=== PATIENT | female | born 1990 | race Caucasian/White ===

== ENCOUNTER 2022-02-08 16:22 | Outpatient (CLI) | payer OTHER, SELFPAY | END 2022-02-08 16:23 | disposition home or self-care (01) | LOC: ANHLAB 16:25 | PROVIDERS: PCP Family Medicine; Visit Provider Obstetrics & Gynecology | DX: Z86.711 Personal history of pulmonary embolism (principal) | CPT/HCPCS: 36415; 85520 ==

== ENCOUNTER 2022-02-13 14:48 | Outpatient (CLI) | payer OTHER, SELFPAY ==
[2022-02-15 11:00] LABS: Heparin, Anti-XA 0.22 IU/mL
== END 2022-02-13 14:49 | disposition home or self-care (01) ==
PROVIDERS: PCP Family Medicine; Visit Provider Obstetrics & Gynecology
DX: Z86.711 Personal history of pulmonary embolism (principal)
CPT/HCPCS: 36415; 85520

== ENCOUNTER 2022-02-15 03:02 | Inpatient (IN) | payer OTHER, SELFPAY ==
[2022-02-15] VITALS (57 sets, daily range): BP systolic 74–161; BP diastolic 23–119; PULSE 80–135; TEMP 36.2–36.4; O2SAT 98–100; BMI 34.1
--- OUTSIDE RECORDS SUMMARY | 2022-02-15 00:59 | XMS_ITS | Encounter Summary ---
:1990 Author Care Team Providers Name Role Phone Maite Steward MD Primary Care Provider [phone] Reason for Visit None recorded. Assessment and Plan 1. Gestational diabetes mellitus, class A>1< ? US, obstetric, biophysical profile + non-stress test Discussion Note: None recorded.Patient educational handouts: No information available. Plan of Care Reminders Provider Appointments None recorded. ? ? Lab None recorded. ? ? Referral None recorded. ? ? Procedures None recorded. ? ? Surgeries None recorded. ? ? Imaging US, Obstetric, Biophysical Profile + 2 [place] Non-stress Test Medications Name Start Date ? ? enoxaparin 100 mg/mL subcutaneous syringe ? INJECT 1 ML BY SUBCUTANEOUS ROUTE EVERY 12 HOURS. escitalopram 10 mg tablet ? Take 1 tablet every day by oral route. ondansetron 4 mg disintegrating tablet ? Take one tablet by oral route every 8 hours as needed for nausea and vomiting OneTouch Delica Plus Lancet 33 gauge ? TEST BLOOD SUGAR 4 TIMES A DAY OneTouch Verio Flex Meter ? CHECK BLOOD SUGAR 4 TIMES A DAY FASTING AND [address] MEALS OneTouch Verio test strips ? USE TO TEST BLOOD SUGAR 4 TIMES A DAY ? Vitamin D2 ? Vitamin D3 ? Medications Administered None recorded. Vitals None recorded. Results Lab Results None recorded. Allergies Code Code System Name Reaction Severity Onset NKDA ? ? ? Problems Name Status Onset Date Source ? Factor II Deficiency Ac
--- OUTSIDE RECORDS SUMMARY | 2022-02-15 00:59 | XMS_ITS | Encounter Summary ---
:1990 Author Care Team Providers Name Role Phone Maite Steward MD Primary Care Provider [phone] Reason for Visit OB visit OB [id number] EDC 02/22/2022 LMP 05/18/2021 Assessment and Plan Assessment Note Patient is _38__weeks . Discuss ed plan. 1. Routine care Discussion Note: None recorded.Patient educational handouts: No information available. Plan of Care Reminders Provider Appointments None recorded. ? ? Lab None recorded. ? ? Referral None recorded. ? ? Procedures None recorded. ? ? Surgeries None recorded. ? ? Imaging None recorded. ? ? Medications Name Start Date ? ? enoxaparin [...] D3 ? Medications Administered None recorded. Vitals Height Weight BMI Blood Pressure 5 ft 6 in 205 lbs 33.1 kg/m2 118/78 mm[Hg] Results Lab Results None recorded. Allergies Code Code System Name Reaction Severity Onset NKDA
--- OUTSIDE RECORDS SUMMARY | 2022-02-15 00:59 | XMS_ITS | Encounter Summary ---
:1990 Author Care Team Providers Name Role Phone Maite Steward MD Primary Care Provider [phone] Reason for Visit None recorded. Assessment and Plan 1. History of pulmonary embolus ? non-stress test Discussion Note: None recorded.Patient educational handouts: No information available. Plan of Care Reminders Provider Appointments None recorded. ? ? Lab None recorded. ? ? Referral None recorded. ? ? Procedures None recorded. ? ? Surgeries None recorded. ? ? Imaging Non-stress Test 02/08/2022 [place] Medications Name Start Date ? ? enoxaparin [...] Onset Date Source ? 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 Pulmonary Embolism Active 07/20/2020 ? Active
--- OUTSIDE RECORDS SUMMARY | 2022-02-15 00:59 | XMS_ITS | Encounter Summary ---
:1990 Author Care Team Providers Name Role Phone Maite Steward MD Primary Care Provider [phone] Reason for Visit OB visit OB [id number] EDC 02/22/2022 LMP 05/18/2021 Assessment and Plan Assessment Note Patient is _35__weeks . Discuss ed plan. 1. Routine care [...] BMI Blood Pressure 5 ft 6 in 204 lbs 32.9 kg/m2 140/80 mm[Hg] Results Lab Results None recorded. Allergies Code Code System Name Reaction Severity Onset NKDA ?
--- OUTSIDE RECORDS SUMMARY | 2022-02-15 00:59 | XMS_ITS | Encounter Summary ---
:1990 Author Care Team Providers Name Role Phone Maite Steward MD Primary Care Provider [phone] Reason for Visit OB visit OB [id number] EDC 02/22/2022 LMP 05/18/2021 Assessment and Plan Assessment Note Patient is _36__weeks . Discuss ed plan. 1. Routine care [...] BMI Blood Pressure 5 ft 6 in 206 lbs 33.2 kg/m2 130/78 mm[Hg] Results Lab Results None recorded. Allergies Code Code System Name Reaction Severity Onset NKDA ?
--- OUTSIDE RECORDS SUMMARY | 2022-02-15 00:59 | XMS_ITS | Encounter Summary ---
:1990 Author Care Team Providers Name Role Phone Maite Steward MD Primary Care Provider [phone] Reason for Visit None recorded. Assessment and Plan 1. Gestational diabetes mellitus, class A>1< ? US, obstetric, follow-up ? US, obstetric, biophysical profile + non-stress test Discussion Note: None recorded.Patient educational handouts: No information available. Plan of Care Reminders Provider Appointments None recorded. ? ? Lab None recorded. ? ? Referral None recorded. ? ? Procedures None recorded. ? ? Surgeries None recorded. ? ? Imaging US, Obstetric, Follow-up 01/18/2022 [place] ? US, Obstetric, Biophysical Profile + 2 [place] Non-stress Test Medications Name Start Date ? [...]
--- OUTSIDE RECORDS SUMMARY | 2022-02-15 00:59 | XMS_ITS | Encounter Summary ---
:1990 Author Care Team Providers Name Role Phone Maite Steward MD Primary Care Provider [phone] Reason for Visit OB visit OB [id number] EDC 02/22/2022 LMP 05/18/2021 Assessment and Plan Assessment Note Patient is _37__weeks . Discuss ed plan. 1. Routine care [...] BMI Blood Pressure 5 ft 6 in 208 lbs 33.6 kg/m2 117/73 mm[Hg] Results Lab Results None recorded. Allergies Code Code System Name Reaction Severity Onset NKDA ?
--- OUTSIDE RECORDS SUMMARY | 2022-02-15 00:59 | XMS_ITS ---
:1990 Author Care Team Providers Name Role Phone ROE METZGER MD Primary Care Provider [phone] Allergies Code Code System Name Reaction Severity Status Onset NKDA ? Medications Name Status Start Date Stop Date ? ? acetaminophen 300 mg-codeine 30 mg tablet Completed ? 01/08/2021 enoxaparin 100 mg/mL subcutaneous syringe Active ? Not available Yi 0.35 mg tablet Completed 05/28/2016 12/30/2016 take 1 tablet by oral route every day escitalopram 10 mg tablet Active ? Not av ailable Lexapro Completed ? 01/04/2021 Lovenox 150 mg/mL subcutaneous syringe Completed 8 09/30/2018 inject 1 milliliter by subcutaneous route every 12 hours Lovenox 300 mg/3 mL subcutaneous solution Completed ? 07/20/2020 inject by subcutaneous route every 12 hours methylphenidate ER 36 mg tablet,extended Completed ? 01/08/2021 release 24 hr Mirena 20 mcg/24 hours (8 yrs) 52 mg intrauterine device Complet ed ? 01/04/2021 Take by intrauterine route. NuvaRing 0.12 mg-0.015 mg/24 hr vaginal Completed 04/21/20 17 05/22/2017 INSERT 1 VAGINAL RING BY VAGINAL ROUTE LEAVE IN PLACE FOR 3 WEEKS, REMOVE FOR 1 WEEK ondansetron 4 mg disintegrating tablet Active ? Not available Take one tablet by oral route every 8 hours as needed for n ausea and vomiting OneTouch Delica Plus Lancet 33 gauge Active ? Not available TEST BLOOD SUGAR 4 TIMES A DAY OneTouch Verio Flex Meter Active ? Not av ailable CHECK BLOOD SUGAR 4 TIMES A DAY FASTING AND 1 HOUR AFTER MEALS OneTouch Verio test strips Active ? Not a vailable USE TO TEST BLOOD SUGAR 4 TIMES
--- OUTSIDE RECORDS SUMMARY | 2022-02-15 00:59 | XMS_ITS | Encounter Summary ---
:1990 Author Care Team Providers Name Role Phone Maite Steward MD Primary Care Provider [phone] Reason for Visit None recorded. Assessment and Plan 1. History of pulmonary embolus ? non-stress test Discussion Note: None recorded.Patient educational handouts: No information available. Plan of Care Reminders Provider Appointments None recorded. ? ? Lab None recorded. ? ? Referral None recorded. ? ? Procedures None recorded. ? ? Surgeries None recorded. ? ? Imaging Non-stress Test 01/25/2022 [place] Medications Name Start Date ? ? enoxaparin [...]
--- OUTSIDE RECORDS SUMMARY | 2022-02-15 00:59 | XMS_ITS | Encounter Summary ---
:1990 Author Care Team Providers Name Role Phone Maite Steward MD Primary Care Provider [phone] Reason for Visit OB visit OB [id number] EDC 02/22/2022 LMP 05/18/2021 Assessment and Plan [...] ft 6 in 205 lbs 33.1 kg/m2 116/79 mm[Hg] Results Lab Results None recorded. Allergies Code Code System Name Reaction Severity Onset NKDA ?
--- OUTSIDE RECORDS SUMMARY | 2022-02-15 00:59 | XMS_ITS | Encounter Summary ---
:1990 Author Care Team Providers Name Role Phone Maite Steward MD Primary Care Provider [phone] Reason for Visit None recorded. Assessment and [...] Imaging US, Obstetric, Biophysical Profile + 2 [place] Non-stress Test Medications Name Start Date ? [...] Onset Date Source ? Factor II Deficiency Act
--- OUTSIDE RECORDS SUMMARY | 2022-02-15 00:59 | XMS_ITS | Encounter Summary ---
:1990 Author Care Team Providers Name Role Phone Maite Steward MD Primary Care Provider [phone] Reason for Visit None recorded. Assessment and [...] Imaging US, Obstetric, Biophysical Profile + 2 [place] Non-stress Test Medications Name Start Date ? [...]
--- OUTSIDE RECORDS SUMMARY | 2022-02-15 00:59 | XMS_ITS | Encounter Summary ---
:1990 Author Care Team Providers Name Role Phone Maite Steward MD Primary Care Provider [phone] Reason for Visit None recorded. Assessment and Plan 1. History of pulmonary embolus ? non-stress test Discussion Note: None recorded.Patient educational handouts: No information available. Plan of Care Reminders Provider Appointments None recorded. ? ? Lab None recorded. ? ? Referral None recorded. ? ? Procedures None recorded. ? ? Surgeries None recorded. ? ? Imaging Non-stress Test 02/13/2022 [place] Medications Name Start Date ? ? enoxaparin [...] 07/20/2020 ? Pulmonary Embolism Active 07/20/2020 ? Activ
--- OUTSIDE RECORDS SUMMARY | 2022-02-15 00:59 | XMS_ITS | Encounter Summary ---
:1990 Author Care Team Providers Name Role Phone Maite Steward MD Primary Care Provider [phone] Reason for Visit None recorded. Assessment and Plan 1. History of pulmonary embolus ? non-stress test Discussion Note: None recorded.Patient educational handouts: No information available. Plan of Care Reminders Provider Appointments None recorded. ? ? Lab None recorded. ? ? Referral None recorded. ? ? Procedures None recorded. ? ? Surgeries None recorded. ? ? Imaging Non-stress Test 02/01/2022 [place] Medications Name Start Date ? ? enoxaparin [...]
--- OUTSIDE RECORDS SUMMARY | 2022-02-15 01:00 | XMS_ITS | Encounter Summary ---
:1990 Author Care Team Providers Name Role Phone Maite Steward MD Primary Care Provider [phone] Reason for Visit OB visit OB [id number] EDC 02/22/2022 LMP 05/18/2021 Assessment and Plan Assessment Note Patient is 29___weeks . Discuss ed plan. 1. Routine care [...] BMI Blood Pressure 5 ft 6 in 207 lbs 33.4 kg/m2 104/70 mm[Hg] Results Lab Results None recorded. Allergies Code Code System Name Reaction Severity Onset NKDA ?
--- OUTSIDE RECORDS SUMMARY | 2022-02-15 01:00 | XMS_ITS | Encounter Summary ---
:1990 Author Care Team Providers Name Role Phone Maite Steward MD Primary Care Provider [phone] Reason for Visit None recorded. Assessment and Plan 1. History of pulmonary embolus ? non-stress test Discussion Note: None recorded.Patient educational handouts: No information available. Plan of Care Reminders Provider Appointments None recorded. ? ? Lab None recorded. ? ? Referral None recorded. ? ? Procedures None recorded. ? ? Surgeries None recorded. ? ? Imaging Non-stress Test 01/18/2022 [place] Medications Name Start Date ? ? enoxaparin [...]
--- OUTSIDE RECORDS SUMMARY | 2022-02-15 01:00 | XMS_ITS | Encounter Summary ---
:1990 Author Care Team Providers Name Role Phone Maite Steward MD Primary Care Provider [phone] Reason for Visit OB visit OB [id number] EDC 02/22/2022 LMP 05/18/2021 Assessment and Plan Assessment Note Patient is __33_weeks . Discuss ed plan. 1. Routine care [...] BMI Blood Pressure 5 ft 6 in 203 lbs 32.8 kg/m2 120/70 mm[Hg] Results Lab Results None recorded. Allergies Code Code System Name Reaction Severity Onset NKDA ?
--- OUTSIDE RECORDS SUMMARY | 2022-02-15 01:00 | XMS_ITS | Encounter Summary ---
:1990 Author Care Team Providers Name Role Phone Maite Steward MD Primary Care Provider [phone] Reason for Visit None recorded. Assessment and [...] Imaging US, Obstetric, Biophysical Profile + 2 [place] Non-stress Test Medications Name Start Date ? [...]
--- OUTSIDE RECORDS SUMMARY | 2022-02-15 01:00 | XMS_ITS | Encounter Summary ---
:1990 Author Care Team Providers Name Role Phone Maite Steward MD Primary Care Provider [phone] Reason for Visit OB visit OB [id number] EDC 02/22/22 LMP 05/18/2021 Assessment and Plan Assessment Note [...] ft 6 in 205 lbs 33.1 kg/m2 114/75 mm[Hg] Results Lab Results None recorded. Allergies Code Code System Name Reaction Severity Onset NKDA ?
--- OUTSIDE RECORDS SUMMARY | 2022-02-15 01:00 | XMS_ITS | Encounter Summary ---
:1990 Author Care Team Providers Name Role Phone Maite Steward MD Primary Care Provider [phone] Reason for Visit None recorded. Assessment and [...] Imaging US, Obstetric, Biophysical Profile + 2 [place] Non-stress Test Medications Name Start Date ? [...] Onset Date Source ? Factor II Deficiency Acti
--- OUTSIDE RECORDS SUMMARY | 2022-02-15 01:00 | XMS_ITS | Encounter Summary ---
:1990 Author Care Team Providers Name Role Phone Maite Steward MD Primary Care Provider [phone] Reason for Visit None recorded. Assessment and Plan 1. History of pulmonary embolus ? non-stress test Discussion Note: None recorded.Patient educational handouts: No information available. Plan of Care Reminders Provider Appointments None recorded. ? ? Lab None recorded. ? ? Referral None recorded. ? ? Procedures None recorded. ? ? Surgeries None recorded. ? ? Imaging Non-stress Test 12/28/2021 [place] Medications Name Start Date ? ? enoxaparin [...]
--- OUTSIDE RECORDS SUMMARY | 2022-02-15 01:00 | XMS_ITS | Encounter Summary ---
:1990 Author Care Team Providers Name Role Phone Maite Steward MD Primary Care Provider [phone] Reason for Visit None recorded. Assessment and Plan 1. History of pulmonary embolus ? non-stress test Discussion Note: None recorded.Patient educational handouts: No information available. Plan of Care Reminders Provider Appointments None recorded. ? ? Lab None recorded. ? ? Referral None recorded. ? ? Procedures None recorded. ? ? Surgeries None recorded. ? ? Imaging Non-stress Test 01/04/2022 [place] Medications Name Start Date ? ? enoxaparin [...]
--- OUTSIDE RECORDS SUMMARY | 2022-02-15 01:00 | XMS_ITS | Encounter Summary ---
:1990 Author Care Team Providers Name Role Phone Maite Steward MD Primary Care Provider [phone] Reason for Visit None recorded. Assessment and [...] Imaging US, Obstetric, Biophysical Profile + 2 [place] Non-stress Test Medications Name Start Date ? [...]
--- OUTSIDE RECORDS SUMMARY | 2022-02-15 01:00 | XMS_ITS | Encounter Summary ---
:1990 Author Care Team Providers Name Role Phone Maite Steward MD Primary Care Provider [phone] Reason for Visit OB visit OB [id number] EDC 02/22/2022 LMP 05/18/2021 Assessment and Plan Assessment Note Patient is ___weeks . Discussed plan. 1. Routine care Discussion Note: None [...] ft 6 in 203 lbs 32.8 kg/m2 109/67 mm[Hg] Results Lab Results None recorded. Allergies Code Code System Name Reaction Severity Onset NKDA ?
--- OUTSIDE RECORDS SUMMARY | 2022-02-15 01:00 | XMS_ITS | Encounter Summary ---
:1990 Author Care Team Providers Name Role Phone Maite Steward MD Primary Care Provider [phone] Reason for Visit None recorded. Assessment and Plan 1. History of pulmonary embolus ? non-stress test Discussion Note: None recorded.Patient educational handouts: No information available. Plan of Care Reminders Provider Appointments None recorded. ? ? Lab None recorded. ? ? Referral None recorded. ? ? Procedures None recorded. ? ? Surgeries None recorded. ? ? Imaging Non-stress Test 01/11/2022 [place] Medications Name Start Date ? ? enoxaparin [...]
--- OUTSIDE RECORDS SUMMARY | 2022-02-15 03:41 | XMS_ITS | Encounter Summary ---
:1990 Author Care Team Providers Name Role Phone Maite Steward MD Primary Care Provider [phone] Reason for Visit OB visit OB [id number] EDC 02/22/2022 LMP 05/18/2021 Assessment and Plan [...]
--- OUTSIDE RECORDS SUMMARY | 2022-02-15 03:41 | XMS_ITS | Encounter Summary ---
:1990 Author Care Team Providers Name Role Phone Maite Steward MD Primary Care Provider [phone] Reason for Visit None recorded. Assessment and [...] Imaging US, Obstetric, Biophysical Profile + 2 [place] Non-stress Test Medications Name Start Date ? [...]
--- OUTSIDE RECORDS SUMMARY | 2022-02-15 03:41 | XMS_ITS ---
:1990 Author Care Team Providers Name Role Phone ROE METZGER MD Primary Care Provider [phone] Allergies Code Code System Name Reaction Severity [...]
--- OUTSIDE RECORDS SUMMARY | 2022-02-15 03:41 | XMS_ITS | Encounter Summary ---
:1990 Author Care Team Providers Name Role Phone Maite Steward MD Primary Care Provider [phone] Reason for Visit OB visit OB [id number] EDC 02/22/2022 LMP 05/18/2021 Assessment and Plan [...]
--- OUTSIDE RECORDS SUMMARY | 2022-02-15 03:41 | XMS_ITS | Encounter Summary ---
:1990 Author Care Team Providers Name Role Phone Maite Steward MD Primary Care Provider [phone] Reason for Visit None recorded. Assessment and Plan 1. History of pulmonary embolus ? non-stress test Discussion Note: None recorded.Patient educational handouts: No information available. Plan of Care Reminders Provider Appointments None recorded. ? ? Lab None recorded. ? ? Referral None recorded. ? ? Procedures None recorded. ? ? Surgeries None recorded. ? ? Imaging Non-stress Test 02/13/2022 [place] Medications Name Start Date ? ? enoxaparin [...]
--- OUTSIDE RECORDS SUMMARY | 2022-02-15 03:41 | XMS_ITS | Encounter Summary ---
:1990 Author Care Team Providers Name Role Phone Maite Steward MD Primary Care Provider [phone] Reason for Visit OB visit OB [id number] EDC 02/22/2022 LMP 05/18/2021 Assessment and Plan [...]
--- OUTSIDE RECORDS SUMMARY | 2022-02-15 03:41 | XMS_ITS | Encounter Summary ---
:1990 Author Care Team Providers Name Role Phone Maite Steward MD Primary Care Provider [phone] Reason for Visit None recorded. Assessment and [...] Imaging US, Obstetric, Biophysical Profile + 2 [place] Non-stress Test Medications Name Start Date ? [...]
--- OUTSIDE RECORDS SUMMARY | 2022-02-15 03:41 | XMS_ITS | Encounter Summary ---
:1990 Author Care Team Providers Name Role Phone Maite Steward MD Primary Care Provider [phone] Reason for Visit None recorded. Assessment and [...] Imaging US, Obstetric, Biophysical Profile + 2 [place] Non-stress Test Medications Name Start Date ? [...]
--- OUTSIDE RECORDS SUMMARY | 2022-02-15 03:41 | XMS_ITS | Encounter Summary ---
:1990 Author Care Team Providers Name Role Phone Maite Steward MD Primary Care Provider [phone] Reason for Visit None recorded. Assessment and Plan 1. History of pulmonary embolus ? non-stress test Discussion Note: None recorded.Patient educational handouts: No information available. Plan of Care Reminders Provider Appointments None recorded. ? ? Lab None recorded. ? ? Referral None recorded. ? ? Procedures None recorded. ? ? Surgeries None recorded. ? ? Imaging Non-stress Test 02/08/2022 [place] Medications Name Start Date ? ? enoxaparin [...]
--- OUTSIDE RECORDS SUMMARY | 2022-02-15 03:41 | XMS_ITS | Encounter Summary ---
:1990 Author Care Team Providers Name Role Phone Maite Steward MD Primary Care Provider [phone] Reason for Visit None recorded. Assessment and Plan 1. History of pulmonary embolus ? non-stress test Discussion Note: None recorded.Patient educational handouts: No information available. Plan of Care Reminders Provider Appointments None recorded. ? ? Lab None recorded. ? ? Referral None recorded. ? ? Procedures None recorded. ? ? Surgeries None recorded. ? ? Imaging Non-stress Test 02/01/2022 [place] Medications Name Start Date ? ? enoxaparin [...]
--- OUTSIDE RECORDS SUMMARY | 2022-02-15 03:41 | XMS_ITS | Encounter Summary ---
:1990 Author Care Team Providers Name Role Phone Maite Steward MD Primary Care Provider [phone] Reason for Visit OB visit OB [id number] EDC 02/22/2022 LMP 05/18/2021 Assessment and Plan [...]
--- OUTSIDE RECORDS SUMMARY | 2022-02-15 03:42 | XMS_ITS | Encounter Summary ---
:1990 Author Care Team Providers Name Role Phone Maite Steward MD Primary Care Provider [phone] Reason for Visit OB visit OB [id number] EDC 02/22/2022 LMP 05/18/2021 Assessment and Plan [...]
--- OUTSIDE RECORDS SUMMARY | 2022-02-15 03:42 | XMS_ITS | Encounter Summary ---
:1990 Author Care Team Providers Name Role Phone Maite Steward MD Primary Care Provider [phone] Reason for Visit OB visit OB [id number] EDC 02/22/2022 LMP 05/18/2021 Assessment and Plan [...]
--- OUTSIDE RECORDS SUMMARY | 2022-02-15 03:42 | XMS_ITS | Encounter Summary ---
:1990 Author Care Team Providers Name Role Phone Maite Steward MD Primary Care Provider [phone] Reason for Visit None recorded. Assessment and [...] Imaging US, Obstetric, Biophysical Profile + 2 [place] Non-stress Test Medications Name Start Date ? [...]
--- OUTSIDE RECORDS SUMMARY | 2022-02-15 03:42 | XMS_ITS | Encounter Summary ---
:1990 Author Care Team Providers Name Role Phone Maite Steward MD Primary Care Provider [phone] Reason for Visit None recorded. Assessment and [...] Imaging US, Obstetric, Biophysical Profile + 2 [place] Non-stress Test Medications Name Start Date ? [...]
--- OUTSIDE RECORDS SUMMARY | 2022-02-15 03:42 | XMS_ITS | Encounter Summary ---
:1990 Author Care Team Providers Name Role Phone Maite Steward MD Primary Care Provider [phone] Reason for Visit None recorded. Assessment and [...] ? US, Obstetric, Biophysical Profile + 2 [place] Non-stress Test Medications Name Start Date ? [...]
--- OUTSIDE RECORDS SUMMARY | 2022-02-15 03:42 | XMS_ITS | Encounter Summary ---
:1990 Author Care Team Providers Name Role Phone Maite Steward MD Primary Care Provider [phone] Reason for Visit OB visit OB [id number] EDC 02/22/2022 LMP 05/18/2021 Assessment and Plan [...]
--- OUTSIDE RECORDS SUMMARY | 2022-02-15 03:42 | XMS_ITS | Encounter Summary ---
:1990 Author Care Team Providers Name Role Phone Maite Steward MD Primary Care Provider [phone] Reason for Visit None recorded. Assessment and [...] Imaging US, Obstetric, Biophysical Profile + 2 [place] Non-stress Test Medications Name Start Date ? [...]
--- OUTSIDE RECORDS SUMMARY | 2022-02-15 03:42 | XMS_ITS | Encounter Summary ---
:1990 Author Care Team Providers Name Role Phone Maite Steward MD Primary Care Provider [phone] Reason for Visit None recorded. Assessment and Plan 1. History of pulmonary embolus ? non-stress test Discussion Note: None recorded.Patient educational handouts: No information available. Plan of Care Reminders Provider Appointments None recorded. ? ? Lab None recorded. ? ? Referral None recorded. ? ? Procedures None recorded. ? ? Surgeries None recorded. ? ? Imaging Non-stress Test 01/11/2022 [place] Medications Name Start Date ? ? enoxaparin [...]
--- OUTSIDE RECORDS SUMMARY | 2022-02-15 03:42 | XMS_ITS | Encounter Summary ---
:1990 Author Care Team Providers Name Role Phone Maite Steward MD Primary Care Provider [phone] Reason for Visit None recorded. Assessment and Plan 1. History of pulmonary embolus ? non-stress test Discussion Note: None recorded.Patient educational handouts: No information available. Plan of Care Reminders Provider Appointments None recorded. ? ? Lab None recorded. ? ? Referral None recorded. ? ? Procedures None recorded. ? ? Surgeries None recorded. ? ? Imaging Non-stress Test 01/18/2022 [place] Medications Name Start Date ? ? enoxaparin [...]
--- OUTSIDE RECORDS SUMMARY | 2022-02-15 03:42 | XMS_ITS | Encounter Summary ---
:1990 Author Care Team Providers Name Role Phone Maite Steward MD Primary Care Provider [phone] Reason for Visit None recorded. Assessment and Plan 1. History of pulmonary embolus ? non-stress test Discussion Note: None recorded.Patient educational handouts: No information available. Plan of Care Reminders Provider Appointments None recorded. ? ? Lab None recorded. ? ? Referral None recorded. ? ? Procedures None recorded. ? ? Surgeries None recorded. ? ? Imaging Non-stress Test 12/28/2021 [place] Medications Name Start Date ? ? enoxaparin [...]
--- OUTSIDE RECORDS SUMMARY | 2022-02-15 03:42 | XMS_ITS | Encounter Summary ---
:1990 Author Care Team Providers Name Role Phone Maite Steward MD Primary Care Provider [phone] Reason for Visit OB visit OB [id number] EDC 02/22/22 LMP 05/18/2021 Assessment and Plan [...]
--- OUTSIDE RECORDS SUMMARY | 2022-02-15 03:42 | XMS_ITS | Encounter Summary ---
:1990 Author Care Team Providers Name Role Phone Maite Steward MD Primary Care Provider [phone] Reason for Visit None recorded. Assessment and Plan 1. History of pulmonary embolus ? non-stress test Discussion Note: None recorded.Patient educational handouts: No information available. Plan of Care Reminders Provider Appointments None recorded. ? ? Lab None recorded. ? ? Referral None recorded. ? ? Procedures None recorded. ? ? Surgeries None recorded. ? ? Imaging Non-stress Test 01/25/2022 [place] Medications Name Start Date ? ? enoxaparin [...]
--- OUTSIDE RECORDS SUMMARY | 2022-02-15 03:42 | XMS_ITS | Encounter Summary ---
:1990 Author Care Team Providers Name Role Phone Maite Steward MD Primary Care Provider [phone] Reason for Visit OB visit OB [id number] EDC 02/22/2022 LMP 05/18/2021 Assessment and Plan [...]
--- OUTSIDE RECORDS SUMMARY | 2022-02-15 03:42 | XMS_ITS | Encounter Summary ---
:1990 Author Care Team Providers Name Role Phone Maite Steward MD Primary Care Provider [phone] Reason for Visit None recorded. Assessment and Plan 1. History of pulmonary embolus ? non-stress test Discussion Note: None recorded.Patient educational handouts: No information available. Plan of Care Reminders Provider Appointments None recorded. ? ? Lab None recorded. ? ? Referral None recorded. ? ? Procedures None recorded. ? ? Surgeries None recorded. ? ? Imaging Non-stress Test 01/04/2022 [place] Medications Name Start Date ? ? enoxaparin [...]
[2022-02-15 04:21] LABS: Basophils Percent Auto 0.4 % (0.2-1.2); Eosinophils Absolute Auto 0.3 K/mm3 (0-0.3); Eosinophils Percent Auto 2.3 % (0-4.4); Hematocrit 37.2 % (37.0-47.0); Hemoglobin 12.1 g/dL (12.0-15.0); Immature Granulocyte Absolute 0.08 K/mm3 (0.00-0.031); Immature Granulocyte Percent A 0.7 % (0-0.5); Lymphocytes Absolute Auto 2.51 K/mm3 (0.9-3.2); Lymphocytes Percent Auto 22.7 % (18.3-44.2); Mean Corpuscular HGB Conc 32.5 g/dl (32-36); Mean Corpuscular Hemoglobin 28.5 pg (26-34); Mean Corpuscular Volume 87.7 fl (80-100); Mean Platelet Volume 11.6 fl (7.4-10.4); Monocytes Absolute Auto 0.8 K/mm3 (0.1-0.6); Monocytes Percent Auto 6.8 % (2.6-8.5); Neutrophils Absolute Auto 7.5 K/mm3 (1.3-6.7); Neutrophils Percent Auto 67.1 % (45.5-73.1); Platelet Count Result 254 k/mm3 (150-375); Red Blood Count 4.24 M/mm3 (4.2-5.4); Red Cell Distribution Width 14.4 % (11.5-14.5); White Blood Count 11.1 K/mm3 (4.5-10.0)
[2022-02-15] MEDS: ONDANSETRON INJ 4 MG/2 ML VIAL IV PUSH (04:30)
--- NOTE | 2022-02-15 06:27 | WPDOBADMIT ---
Obstetrics - Admit Note Admission Note: record reviewed. No pertinent additions to the history and/or any subsequent changes in the physical findings that are not consistent with the expected course of the were found. Pt admitted for IOL, hx section with one successful ,, pt aware of risks, will proceed with amniotomy. Additions to the history and/or subsequent changes in the physical findings follow. None.
--- NOTE | 2022-02-15 06:44 | PM.OBPNLAB ---
Pain Control Date/time seen: 02/15/22 06:44 discussed continuous monitoring is rec for delivery due to risk of uterine rupture, pt stopped lovenox on friday02/12/22 Pelvic Exam Comments: 1-2/70/-2, AROM minimal amount of clear odorless fluid Status status: Category l
[2022-02-15 13:46] LABS: Rapid Plasma Reagin Non-Reactive (NonReactive)
--- NOTE | 2022-02-15 20:54 | PM.OBPNVD ---
OB - PN: Subj Subjective Date/time seen: 02/15/22 20:54 31 y /o here for tolac. She has had a successful in the past. Pt is aware of risks vs benefits of vaginal vs . Little progress today and it was noted by nursing staff that she may have a forebag. VSS Irregular contractions FHR category 1 3/thick/-2 Forebag noted and ruptured Pt aware of recommendations for continuous monitoring but does desire intermittent Plan expectant management as she does not want to start pitocin at this time. OB - PN: Obj Data Labs CBC & Chem 7: 02/15/22 03:35 Labs: Laboratory Results - last 24 hr 02/15/22 02/15/22 02/15/22 03:35 03:35 03:35 WBC 11.1 H RBC 4.24 Hgb 12.1 Hct 37.2 MCV 87.7 MCH 28.5 MCHC 32.5 RDW 14.4 Plt Count 254 MPV 11.6 H Immature Gran % (Auto) 0.7 H Neut % (Auto) 67.1 Lymph % (Auto) 22.7 Starr % (Auto) 6.8 Eos % (Auto) 2.3 Baso % (Auto) 0.4 Lymph # (Auto) 2.51 Starr # (Auto) 0.8 H Eos # (Auto) 0.3 Baso # (Auto) 0.0 Abs Immat Gran (auto) 0.08 H Absolute Neuts (auto) 7.5 H Absolute Nucleated RBC 0.0 Nucleated RBC % 0.0 RPR Non-reactive Blood Type A Positive Antibody Screen Negative OB - PN A/P Time Spent With Patient Time: Total time spent is greater than 50% in coordination of care (as documented) at patient's floor/unit and/or counseling patient:
[2022-02-16] VITALS (104 sets, daily range): BP systolic 82–142; BP diastolic 43–129; PULSE 25–202; RESP 16–18; TEMP 36.3–36.9; O2SAT 74–100
[2022-02-16] MEDS: LACTATED RINGERS 1,000 ML 125 ML IV CONT (00:15)
[2022-02-16] MEDS: OXYTOCIN 30 UNITS/NS 500 ML 30 UNITS/500 ML BAG IV CONT (00:15)
[2022-02-16] MEDS: AMPICILLIN 2 GM/NS 100 ML 2 GM/100 ML BAG IVPB (00:15)
[2022-02-16] MEDS: AMPICILLIN 1 GM/NS 50 ML 1 GM/50 ML BAG IVPB (04:00)
[2022-02-16] MEDS: fentaNYL CITRATE INJ (*CRX) 100 MCG/2 ML VIAL IV PUSH ×2 (04:50→06:18)
[2022-02-16] MEDS: ONDANSETRON INJ 4 MG/2 ML VIAL IV PUSH (05:49)
--- NOTE | 2022-02-16 06:28 | WPDANESEPP ---
Anes - Eval Pre Procedure Procedure: Labor epidural Date/Time: 02/16/22 06:28 Surgeon: Gracie Preop Diagnosis: Abd pain with contractions Pre Op Diagnosis: IOL Patient Data Age: 31 Gender: F Height: 1.65 m Weight: 93 kg Last Vital Signs Temp 98.5 F 02/16/22 04:30 Pulse 100 02/16/22 06:23 BP 123/63 02/16/22 06:23 Pulse Ox 98 02/16/22 02:37 O2 Del Method Room Air 02/15/22 03:10 Allergies Allergy/AdvReac Type Severity Reaction Status Date / Time No Known Allergies Allergy Unverified 07/03/18 15:10 Home Medications Medication Instructions Recorded Confirmed Type cholecalciferol (vitamin D3) 25 25 mcg PO DAILY 02/01/22 02/01/22 History mcg (1,000 unit) tablet (Vitamin D3) enoxaparin 100 mg/mL subcutaneous 100 mg subcut BID 02/01/22 02/01/22 History syringe (Lovenox) ergocalciferol (vitamin D2) 1,000 2,000 unit PO DAILY 02/01/22 02/01/22 History unit capsule escitalopram oxalate 10 mg tablet 10 mg PO DAILY 02/01/22 02/01/22 History ferrous sulfate, dried 144 mg (45 144 mg PO DAILY 02/01/22 02/01/22 History mg iron) tablet,extended release loratadine 10 mg capsule 10 mg PO DAILY 02/01/22 02/01/22 History prenat.vits,myranda,qnu-[id number] 1 tablet PO HS 02/01/22 02/01/22 History Laboratory Tests 02/15/22 03:35 RPR Non-reactive (NonReactive) Patient hx anesthesia problems: none Family hx anesthesia problems: none Results Review: All pre-operative results and documents have been reviewed as part of the pre-operative evaluation. [facility] Past Medical History Medical History Obesity and not yet delivered Family History Family History Mother Thrombosis Social History Social History Smoking status: Never smoker Substance use: never Spiritual care concerns: No Exam Day of Procedure 02/16/22 06:28 Patient weight: obese Airway: Mallampati scale class II
--- NOTE | 2022-02-16 08:01 | PM.OBPRVD ---
OB - Delivery Note Procedure Delivery date: 02/16/22 Procedure: Induction method: AROM Delivery augmentation: Pitocin Delivery monitor: External FHT and External Uterine Route of delivery: Laceration Description: Perineal - 2nd Degree Quantitative Blood Loss (ml): 174 Anesthesia type: Epidural Baby Date of : 02/16/22 Time of : 07:34 Weeks of gestation at delivery: 39 gender: Male presentation: vertex position: Left Occiput Anterior Placenta delivery description: Spontaneous Narrative: Mother and baby in stable condition. Cord gasses collected and handed off to staff. was taken to warmer for further evaluation but was stable.
[2022-02-16] MEDS: OXYTOCIN 30 UNITS/NS 500 ML 30 UNITS/500 ML BAG 125 UNITS IV CONT (08:09)
[2022-02-16] MEDS: MULTIVIT/MIN/PREN/FOL AC/IRON TABLET 1 TAB PO (10:25)
[2022-02-16] MEDS: BENZOCAINE 20% AER SPR (*SP) 56 GM CAN 1 SPRAY TOPICAL (10:26)
[2022-02-16] MEDS: IBUPROFEN 600 MG TABLET PO ×2 (10:26→19:47)
[2022-02-16] MEDS: WITCH HAZEL 40 PADS 1 PAD TOPICAL (10:26)
--- NOTE | 2022-02-16 12:11 | OBPPTRN ---
1150-Patient transferred to post room #283 via wheelchair. Support person present. Oriented to unit, room, information board, rooming in, admission packet and security measures. Patient verbalizes understanding.
[2022-02-16] MEDS: ENOXAPARIN 100 MG/ML SYRINGE SUB-Q (19:47)
[2022-02-17] MEDS: IBUPROFEN 600 MG TABLET PO ×3 (03:22→16:48)
[2022-02-17] MEDS: DOCUSATE SODIUM 100 MG CAPSULE PO ×3 (03:22→16:48)
[2022-02-17 04:00] VITALS: BP 118/66; PULSE 77; RESP 18; TEMP 36.5
[2022-02-17 05:13] LABS: Hematocrit 31.7 % (37.0-47.0)
[2022-02-17] MEDS: ENOXAPARIN 100 MG/ML SYRINGE SUB-Q ×2 (07:27→19:55)
[2022-02-17] MEDS: ACETAMINOPHEN 325 MG TABLET 650 MG PO ×2 (07:28→14:00)
[2022-02-17] MEDS: MULTIVIT/MIN/PREN/FOL AC/IRON TABLET 1 TAB PO (07:29)
[2022-02-17 10:30] VITALS: BP 106/62; PULSE 77; PULSE 83; RESP 14; RESP 18; TEMP 36.3; O2SAT 100
--- NOTE | 2022-02-17 10:36 | WPDANLDPN2 ---
Anes-Prog Note L&D Date/Time: 02/17/22 10:36 Neuro status: Neuro function grossly intact. Vital Signs: Last Vital Signs Temp 36.5 C 02/17/22 04:00 Pulse 77 02/17/22 04:00 Resp 18 02/17/22 04:00 BP 118/66 02/17/22 04:00 Pulse Ox 100 02/16/22 23:16 O2 Del Method Room Air 02/16/22 12:30 Pain score (VAS): 2-at epidural site/bruising like pain I/O: Intake & Output 02/16/22 02/17/22 02/17/22 23:59 07:59 15:59 Intake Total 240 Balance 240 Patient feedback: Patient satisfied with anesthetic care.
[2022-02-17 20:00] VITALS: BP 108/63; PULSE 80; RESP 18; TEMP 36.8
--- NOTE | 2022-02-18 04:00 | PC.NURSE ---
Patient received instructions on viewing the discharge video Mother & Baby Care, The First Two Weeks online. Patient was given the opportunity and encouraged to ask questions. Patient verbalized understanding of information shared and has been given the mother/baby guide for home reference.
--- NOTE | 2022-02-18 07:51 | P.PNOB_ITS ---
OB - PN: Subj Subjective Date/time seen: 02/18/22 07:51 Patient comments: no complaints baby status: doing well [place] feeding status: breast and bottle feeding OB - PN: Obj Data Labs CBC & Chem 7: 02/17/22 05:06 OB - PN A/P Plan day: 2 Plan: routine care and discharge home (F/U in 4 weeks) Comments: Continue lovenox as recommended by MFM. Time Spent With Patient Time: Total time spent is greater than 50% in coordination of care (as documented) at patient's floor/unit and/or counseling patient: Time with patient: less than 15 minutes Review of Systems Review of Systems: All systems reviewed & are unremarkable except as noted in HPI and below Exam Narrative: Fundus firm and vaginal flow controlled. No lower ext redness, warmth, or edema. Negative homans. Const: General: comfortable Chest: Breast/axilla inspection: normal inspection of the breasts Resp: Effort & Inspection: normal respiratory effort Cardio: Rate: regular rate GI: GI Palp: Yes Soft to palpation Psych: Appearance: grossly normal Affect: normal affect Attitude: cooperative Thought content: Yes Normal thought content present Judgement: Good judgement present (Psych)
[2022-02-18 08:00] VITALS: BP 112/75; PULSE 73; RESP 16; TEMP 36.4; O2SAT 98
[2022-02-18] MEDS: MULTIVIT/MIN/PREN/FOL AC/IRON TABLET 1 TAB PO (08:06)
[2022-02-18] MEDS: ENOXAPARIN 100 MG/ML SYRINGE SUB-Q (08:06)
[2022-02-18] MEDS: IBUPROFEN 600 MG TABLET PO (08:09)
--- NOTE | 2022-02-18 12:53 | PC.NURSE ---
[id number] Mother led the conversation with her experience and plan to feed her so far and her ability to independently latch optimally without discomfort since the frenulectomy, and will continue with the plan of and pumping if the father of the baby is bottle feeding for to maintain the milk supply. Reminded parents to use good handwashing technique to prevent infection. Mother is feeding appropriately for growth of and understands stimulating infant to eat if needed. has had appropriate feedings in the last 24 hours meets the outcomes for weight, output and jaundice at this time. Mother states she is confident to continue effectively /pumping/supplementing her at home or when to call for assistance and denies any additional assistance or education at this time. Reinforced understanding of milk production, transition of milk, signs of adequate intake, prevention/relief of engorgement, responsive after visualizing feeding cues, the different methods of stimulating infant to breastfeed 2-3 hours after the start of the last feeding, community resources, medication information reviewed per [facility] and when to call a provider using the resource of the mom and baby guide/[facility] website. Mother voiced understanding of the education shared. Reported to the primary RN.
[2022-02-19 08:51] VITALS: BP 109/61; PULSE 83; RESP 16; TEMP 37; O2SAT 99
--- NOTE | 2022-03-11 07:46 | PM.OBDSVD ---
DS: Admitting Diagnosis Discharge Date 02/18/22 Admitting Diagnosis Induction of labor OB - DS: Summary OB Procedures : None OB Procedures Intrapartum: OB Procedures: : None Time Spent with Patient Time attestation: Total time spent providing and/or coordinating discharge services: Exam Narrative: Fundus firm and vaginal flow controlled. No lower ext redness, warmth, or edema. Negative homans. Const: General: comfortable Chest: Breast/axilla inspection: normal inspection of the breasts Resp: Effort & Inspection: normal respiratory effort Cardio: Rate: regular rate GI: GI Palp: Yes Soft to palpation Psych: Appearance: grossly normal Affect: normal affect Attitude: cooperative Thought content: Yes Normal thought content present Judgement: Good judgement present (Psych) DS: Data Additional Comments Additional comments: Lovenox as discussed with mfm. Discharge Plan Discharge Consulting providers: Kirti Alvarez ; Emily Walker ; Tristan Grewal ; Mariangel Farnsworth Discharging Clinician: Emily Walker Patient Disposition: Home, Self-Care Activity: pelvic rest Diet: regular Discharge Instructions: Education: Mom and Baby Guide Given to: Mother Follow-Up: Call your delivering provider's office for an appointment to be seen in: 4 Weeks Mom and baby should come to the [facility] for the follow-up appointment. Appointment Date/Time: February 19, 2022 at 9:00 am What to expect at your follow-up visit: Physical Assessment Call [phone] if you are unable to keep your appointment time. BREAST CARE: * Wear a snug supportive bra. * For engorgement discomfort: Breast Feeding: * Apply warm moist washcloths * Express milk as needed to relieve engorgement * Wear loose clothing * For sore nipples: * Identify correct latch-on * Apply warm moist washcloths before and after nursing * Air dry nipples after nursing * May apply Lansinoh cream to nipples EPISIOTOMY/PERINEAL CARE: * Until bleeding stops, use your kristian bottle after urinating * Change your pad frequently throughout the day * You may take sitz baths several times a day (fill your bathtub with warm water and soak for 20 minutes.) Do NOT bathe in the water * No tub baths until seen by your physician - You may shower ACTIVITY: * Rest as much as possible. * Do not exercise or lift anything heavier than your baby (such as laundry or other children.) * Avoid stairs or driving as much as possible. * Do not put anything into the vagina. No douching, tampons, or sexual activity until seen by physician. NOTIFY PHYSICIAN IF YOU HAVE ANY QUESTIONS OR IF ANY OF THE FOLLOWING SYMPTOMS OCCUR: * If your episiotomy or incision becomes red, swollen, or more painful than what you have experienced in the hospital. * If your vaginal bleeding becomes foul smelling. * If your vaginal bleeding becomes more heavy than a period or if your bleeding changes from pink to bright red. However, you may pass an occasional walnut-sized clot once or twice for the first week . * If you experience a sharp, shooting pain in you calves. * If you discover a hard, reddened area on your breast or if you experience flu-like symptoms. DIET: * Eat regular, well-balanced meals. * Drink plenty of fluids daily. If , drink to thirst. Stand Alone Forms: General Discharge Information Follow-up/Referrals: Emily Walker CNM [Certified Nurse Voice Over Announcer] - Discharge Medications: Continued ergocalciferol (vitamin D2) 1,000 unit Capsule 2,000 unit PO DAILY enoxaparin [Lovenox] 100 mg/mL Syringe 100 mg SUBCUT BID prenat.vits,myranda,[id number] Tablet 1 tablet PO HS escitalopram oxalate 10 mg Tablet 10 mg PO DAILY cholecalciferol (vitamin D3) [Vitamin D3] 25 mcg (1,000 unit) Tablet 25
== END 2022-02-18 12:05 | disposition home or self-care (01) | DRG 807 ==
LOC: ANHLDR 05:12 → ANHOB2 02-16 11:50
PROVIDERS: Advanced Practice Midwife; Admitting Provider Obstetrics & Gynecology; PCP Family Medicine; Visit Provider Obstetrics & Gynecology
DX: O34.219 Maternal care for unspecified type scar from previous cesarean delivery (principal); Z37.0 Single live birth; O70.1 Second degree perineal laceration during delivery; Z3A.39 39 weeks gestation of pregnancy
CPT/HCPCS: 36415; 85014; 85018; 85025; 85520; 86592; 86850; 86900; 86901; 87081; A9270; J0290; J1650; J2405; J2590; J2795; J3010; J7120